=== PATIENT | female | born 1985 | race Caucasian/White ===

== ENCOUNTER 2017-07-07 07:27 | Emergency (ER) | payer MEDICAID, OTHER ==
[~2017-07-07] VITALS: Ht 170.2 cm; Wt 63.5 kg
[2017-07-07 07:40] VITALS: BP 126/76
[2017-07-07 07:51] LABS: Basophils # (auto) 0 uL; Basophils % (auto) 0.4 % (0.0-2.0); CONDITION Y; Eosinophils # (auto) 0.1 uL; Eosinophils % (auto) 1.2 % (0.0-7.0); Hemoglobin 14.7 g/dL (12.2-16.2); Mean Corpuscular Hemoglobin 29.6 pg (28.0-32.0); Mean Corpuscular Hgb Conc. 33.4 g/dL (32.0-36.0); Mean Corpuscular Volume 88.7 fL (80.0-100.0); Mean Platelet Volume 10.1 fL (7.4-10.4); Monocytes # (auto) 0.3 uL; Monocytes % (auto) 5.7 % (0.0-12.0); Neutrophils # (auto) 4.6 uL; Neutrophils % (auto) 75.7 % (37.0-80.0); Platelet Count (auto) 213 10^3/uL (140-450); Red Cell Distribution Width 12.7 % (11.6-16.0); White Blood Cell 6.1 10^3/uL (4.4-10.8)
[2017-07-07] MEDS ORDERED: PANTOPRAZOLE 40 MG/10 ML VIAL IV ONE (08:00)
[2017-07-07 08:03] LABS: Urine Bilirubin Negative (Negative); Urine Blood TRACE /uL (Negative); Urine Color Yellow (Yellow); Urine Glucose Normal (Normal); Urine Ketone Negative (Negative); Urine Mucus FEW (None Seen); Urine Nitrite Negative (Negative); Urine RBC 2 /hpf (0 - 4); Urine Squamous Epithelial Cell MOD /hpf (<5); Urine Urobilinogen Normal (Negative)
[2017-07-07 08:11] LABS: Albumin 4.2 g/dL (3.4-5.0); Anion Gap 10 (5-15); Aspartate Aminotransferase 11 U/L (15-37); BUN/Creatinine Ratio 13.3; Blood Urea Nitrogen 12 mg/dL (7-18); Carbon Dioxide 25 mmol/L (21-32); Chloride 107 mmol/L (98-107); GFR African American 94 mL/min; GFR Non-African American 78 mL/min; Glucose 84 mg/dL (74-106); Magnesium 2.4 mg/dL (1.6-2.6); Potassium 4.1 mmol/L (3.5-5.1); Sodium 142 mmol/L (136-145)
[2017-07-07 08:16] LABS: Alkaline Phosphatase 29 U/L (45-117); Bilirubin, Total 0.7 mg/dL (0.2-1.0)
== END 2017-07-07 09:50 | disposition home or self-care (01) ==
LOC: ER 07:29
DX: K29.70 Gastritis, unspecified, without bleeding (principal); N39.0 Urinary tract infection, site not specified; Z87.891 Personal history of nicotine dependence
CPT/HCPCS: 36415; 71010; 76705; 80053; 81001; 81025; 83690; 83735; 84484; 85025; 85379; 93005; 94761; 96374; 99285; C9113